=== PATIENT | female | born 1945 | race American Indian/Alaskan Native ===

== ENCOUNTER 2017-05-31 15:02 | Inpatient (IN) | payer MEDICARE, BC ==
[2017-05-31 15:47] VITALS: BMI 48.0
--- NOTE | 2017-05-31 16:15 | C.PDOC ---
History Of Present Illness 71 year old female referred to ED by Dr. Enzo Graves for admission. Pt complaints of new onset of epigastric abdominal pain 4 days ago, which is now resolved. Pt states, "I always have shortness of breath". Denies any associated lightheadedness, swelling, or fever. Pt states she has history of constipation and thought the pain was associated with that. Notes taking Citrate with output. No recurrent epigastric pain since. REFERRED DR Enzo GRAVES FOR ADMISSION. NEW ONSET EPIG PAIN 4 DAYS AGO, NOW RESOLVED. "I ALWAYS HAVE SHORTNESS OF BREATH". NO ASSOC LIGHTHEADEDNESS, SWELLING, FEVER. PS GETS CONSTIPATION THOUGHT PAIN WAS FROM THAT, TOOK MAG CITRATE +OUTPUT. NO RECUR EPIG PAIN SINCE. EXAM NONTOXIC OBESE HEENT NEG LUNGS SPEAKING FULL SENTENCES NO TACHYPNEA +RALES CV IRREG REG TACHY NO EDEMA WARM DRY REMAINDER NEG Time Seen by Provider: 05/31/17 16:10 Chief Complaint (Nursing): Shortness Of Breath History Per: Patient History/Exam Limitations: no limitations Onset/Duration Of Symptoms: Days Current Symptoms Are (Timing): Gone Quality: "Pain" Associated Symptoms: denies: Sweating, Chest Pain, Bloody Cough, Heart Racing, Leg/Calf Pain, Ankle/Leg Swelling, Dizziness, Light-headedness Recent travel outside of the [place]: No Additional History Per: Patient Past Medical History Reviewed: Historical Data, Nursing Documentation, Vital Signs Vital Signs: Last Vital Signs Temp 99.0 F 05/31/17 15:49 Pulse 116 H 05/31/17 15:49 Resp 22 05/31/17 15:49 BP 164/111 H 05/31/17 15:49 Pulse Ox 95 05/31/17 17:26 Family History: States: Unknown Family Hx - Social History Hx Alcohol Use: No Hx Substance Use: No - Immunization History Hx Tetanus Toxoid Vaccination: No Hx Influenza Vaccination: No Hx Pneumococcal Vaccination: No Review Of Systems Except As Marked, All Systems Reviewed And Found Negative. Constitutional: Negative for: Fever, Chills Cardiovascular: Negative for: Chest Pain, Palpitations, Light Headedness Respiratory: Positive for: Shortness of Breath. Negative for: Cough Gastrointestinal: Negative for: Nausea, Vomiting, Abdominal Pain, Diarrhea Genitourinary: Negative for: Dysuria, Frequency, Hematuria Musculoskeletal: Negative for: Back Pain Neurological: Negative for: Headache, Dizziness Physical Exam - Physical Exam Appears: Non-toxic, No Acute Distress, Other (obese) Skin: Normal Color, Warm, Dry Head: Atraumatic, Normacephalic Eye(s): bilateral: Normal Inspection Nose: Normal Oral Mucosa: Moist Neck: Supple Chest: Symmetrical Cardiovascular: Rhythm Irregular (Irregularly regular, tachycardic) Respiratory: No Accessory Muscle Use, Rales (b/l), No Rhonchi, No Wheezing, Other (speaking in full sentences, no tachypnea) Gastrointestinal/Abdominal: Soft, No Tenderness Extremity: Normal ROM, No Pedal Edema, No Deformity, No Swelling Neurological/Psych: Oriented x3, Normal Speech ED Course And Treatment - Laboratory Results Result Diagrams: 05/31/17 16:47 05/31/17 16:47 O2 Sat by Pulse Oximetry: 95 (RA) Pulse Ox Interpretation: Normal - Radiology CXR: Interpreted by Me CXR Interpretation: Yes: Cardiomegaly, Other (CHF) Progress Note: Blood work, CXR, EKG was ordered and reviewed. Pt was given Cardizem. Progress - Re-Evaluation Re-evaluation Note: 05/31/17 16:35 D/W DR Enzo GRAVES. PROBABLE NEW ONSET CHF, AFIB. 05/31/17 17:11 D/W DR Jude MENDEZ C/F PMD WILL ADMIT 05/31/17 17:26 NO CP SINCE INITIAL EVAL. CARDIZEM IN PROGRESS. WILL DOSE ASA, LOVENOX FOR +TROP - Data Reviewed Data Reviewed: Lab, Diagnostic imaging, EKG - Critical Care Citical Care: Excluding Proc Time Critical Care Time: 90 minutes - Continuity of Care Discussed patient case with:: Patient, Covering for PMD Discussed pt. case with biometrics consultant/specialty: Cardiology Disposition Counseled Patient/Family Regarding: Studies Performed, Diagnosis, Need For Followup - Disposition Disposition: HOSPITALIZED Disposition Time: 17:12 Condition: STABLE Forms: [facility] ([place]ish) - POA Present On Arrival: None - Clinical Impression Clinical Impression: New onset atrial fibrillation, Rapid atrial fibrillation, New onset of congestive heart failure, Troponin level elevated - Scribe Statement The provider has reviewed the documentation as recorded by the Scribe Chaka Mendez All medical record entries made by the Scribe were at my direction and personally dictated by me. I have reviewed the chart and agree that the record accurately reflects my personal performance of the history, physical exam, medical decision making, and the department course for this patient. I have also personally directed, reviewed, and agree with the discharge instructions and disposition. Decision To Admit - Pt Status Changed To: Hospital Disposition Of: Inpatient - Admit Certification Admit to Inpatient:: After my assessment, the patient will require hospitalization for at least two midnights. This is because of the severity of symptoms shown, intensity of services needed, and/or the medical risk in this patient being treated as an outpatient. - InPatient: Physician Admission Certification: I certify that this patient requires 2 or more midnights of care for the following reason:: SEE NOTE - . Bed Request Type: Telemetry Admitting Physician: Veronica Mendez Patient Diagnosis: New onset atrial fibrillation, Rapid atrial fibrillation, New onset of congestive heart failure
[2017-05-31 16:50] LABS: BASO # 0.1 K/uL (0.0-0.2); BASO % 0.9 % (0.0-2.0); EOS # 0.2 K/uL (0.0-0.7); EOS % 2.3 % (0.0-4.0); HEMOGLOBIN 12.9 g/dL (11.0-16.0); LYMPH # 1.6 K/uL (1.0-4.3); LYMPH % 20.2 % (20.0-40.0); MEAN CELL VOLUME 89.9 fL (81.0-99.0); MEAN CORPUSCULAR HEMOGLOBIN 29.7 pg (27.0-31.0); MEAN CORPUSCULAR HGB CONC 33.1 g/dL (33.0-37.0); MEAN PLATELET VOLUME 8.2 fL (7.2-11.7); MONO # 0.8 K/uL (0.0-0.8); MONO % 9.8 % (0.0-10.0); NEUT # 5.1 K/uL (1.8-7.0); NEUT % 66.8 % (50.0-75.0); RBC 4.32 Mil/uL (3.80-5.20); RED CELL DISTRIBUTION WIDTH 14.8 % (11.5-14.5); WHITE BLOOD COUNT 7.7 K/uL (4.8-10.8)
[2017-05-31 17:00] LABS: PROTHROMBIN TIME 11.3 SECONDS (9.7-12.2)
[2017-05-31 17:02] LABS: ALB/GLOB RATIO 1.1 (1.0-2.1); ALBUMIN 3.9 g/dL (3.5-5.0); ALT/SGPT 29 U/L (9-52); AST/SGOT 26 U/L (14-36); BLOOD UREA NITROGEN 15 mg/dL (7-17); CALCIUM 8.4 mg/dl (8.6-10.4); GFR AFRICAN-AMERICAN > 60; GFR NON-AFRICAN AMERICAN > 60
[2017-05-31 17:17] LABS: B-TYPE NATRIURETIC PEPTIDE 2150 pg/mL (0-900)
[2017-05-31] MEDS ORDERED: Enoxaparin 40 mg Syringe SC STA (17:25)
--- NOTE | 2017-05-31 17:30 | RAD ---
HISTORY: chest pain COMPARISON: None available. TECHNIQUE: Chest, one view. FINDINGS: Examination limited by habitus. LUNGS: Moderate pulmonary venous congestion. Please note that chest x-ray has limited sensitivity for the detection of pulmonary masses. PLEURA: No significant pleural effusion identified. No definite pneumothorax . CARDIOVASCULAR: Cardiomegaly with CTR approximately 19.3/29.4. Ectatic aorta. OSSEOUS STRUCTURES: No acute osseous abnormality identified. VISUALIZED UPPER ABDOMEN: Unremarkable. OTHER FINDINGS: None. IMPRESSION: Marked cardiomegaly. Moderate pulmonary venous congestion.
[2017-05-31] MEDS ORDERED: Enoxaparin 100 mg Syringe ONE (17:44)
--- NOTE | 2017-05-31 19:10 | CP.PCM.HP ---
Past Patient History - Past Social History Smoking Status: Former Smoker - CARDIAC Hx Cardiac Disorders: Yes Hx Hypotension: Yes - ENDOCRINE/METABOLIC Hx Endocrine Disorders: Yes Hx Diabetes Mellitus Type 2: Yes - PSYCHIATRIC Hx Substance Use: No Meds Allergies/Adverse Reactions: Allergies Allergy/AdvReac Type Severity Reaction Status Date / Time No Known Allergies Allergy Verified 05/31/17 15:46 Physical Exam - Constitutional Appears: Well - Head Exam Head Exam: ATRAUMATIC, NORMAL INSPECTION, NORMOCEPHALIC - Eye Exam Eye Exam: EOMI, Normal appearance, PERRL Pupil Exam: NORMAL ACCOMODATION, PERRL - ENT Exam ENT Exam: Mucous Membranes Moist, Normal Exam - Neck Exam Neck exam: Positive for: Normal Inspection - Respiratory Exam Respiratory Exam: Decreased Breath Sounds - Cardiovascular Exam Cardiovascular Exam: REGULAR RHYTHM, +S1, +S2 - GI/Abdominal Exam GI & Abdominal Exam: Diminished Bowel Sounds, Soft - Rectal Exam Rectal Exam: Deferred Results - Vital Signs Recent Vital Signs: Last Vital Signs Temp 99.0 F 05/31/17 15:49 Pulse 97 H 05/31/17 17:47 Resp 18 05/31/17 17:47 BP 173/104 H 05/31/17 17:47 Pulse Ox 97 05/31/17 17:47 - Labs Result Diagrams: 05/31/17 16:47 05/31/17 16:47 Labs: Laboratory Results - last 24 hr 05/31/17 05/31/17 05/31/17 16:47 16:47 16:47 WBC 7.7 RBC 4.32 Hgb 12.9 Hct 38.9 MCV 89.9 MCH 29.7 MCHC 33.1 RDW 14.8 H Plt Count 254 MPV 8.2 Neut % (Auto) 66.8 Lymph % (Auto) 20.2 [place] % (Auto) 9.8 Eos % (Auto) 2.3 Baso % (Auto) 0.9 Neut # 5.1 Lymph # 1.6 [place] # 0.8 Eos # 0.2 Baso # 0.1 PT 11.3 INR 1.0 APTT 31 Sodium 136 Potassium 3.7 Chloride 101 Carbon Dioxide 27 Anion Gap 11 BUN 15 Creatinine 0.8 Est GFR ( Amer) > 60 Est GFR (Non-Af Amer) > 60 Random Glucose 116 H Calcium 8.4 L Total Bilirubin 1.1 AST 26 ALT 29 Alkaline Phosphatase 144 H Troponin I 0.2020 H* NT-Pro-B Natriuret Pep 2150 H Total Protein 7.4 Albumin 3.9 Globulin 3.5 Albumin/Globulin Ratio 1.1
[2017-05-31] MEDS: Enoxaparin 100 mg Syringe SC SCH (22:51)
[2017-05-31] MEDS ORDERED: Enoxaparin 40 mg Syringe ONE (22:56)
[2017-05-31] MEDS ORDERED: Enoxaparin 60 mg Syringe ONE (22:57)
--- NOTE | 2017-06-01 00:32 | CP.PCM.PN ---
Subjective - Date & Time of Evaluation Date of Evaluation: 05/31/17 Time of Evaluation: 23:40 - Subjective Subjective: 71 M with hx of DM, HTN admitted for epigastric pain and now positive Trops For cath in am NPO after MN except meds Objective - Vital Signs/Intake and Output Vital Signs (last 24 hours): Temp Pulse Resp BP Pulse Ox 99.0 F 73 19 140/90 100 05/31/17 15:49 05/31/17 23:13 05/31/17 23:13 05/31/17 23:13 05/31/17 23:13 - Medications Medications: Current Medications Aspirin (Aspirin) 325 mg PO DAILY [facility] Diltiazem HCl (Cardizem) 30 mg PO QID [facility] Last Admin: 05/31/17 22:50 Dose: 30 mg Enoxaparin Sodium (Lovenox) 100 mg SC Q12 [facility] Last Admin: 05/31/17 22:51 Dose: 100 mg Pantoprazole Sodium (Protonix Ec Tab) 40 mg PO DAILY [facility] - Labs Labs: 05/31/17 16:47 05/31/17 16:47 PT 11.3 SECONDS (9.7-12.2) 05/31/17 16:47 INR 1.0 05/31/17 16:47 APTT 31 SECONDS (21-34) 05/31/17 16:47
[2017-06-01 00:44] LABS: CK-MB 2.26 ng/mL (0.0-3.38); TROPONIN I 0.152 ng/mL (0.00-0.120)
[2017-06-01] MEDS ORDERED: Alum-Mag Hydrox-Simethicone Susp (30 mL) PO ONE (01:38)
[2017-06-01 07:26] LABS: TROPONIN I 0.117 ng/mL (0.00-0.120)
--- NOTE | 2017-06-01 07:29 | CON ---
DATE: 05/30/2017 CARDIOLOGY CONSULTATION REQUESTING PHYSICIAN: Prudencio Lobato MD. HISTORY OF PRESENT ILLNESS: A 71-year-old female was brought in from my office with rapid AFib, shortness of breath, increasing edema for the last 2 to 3 days. She was found to be in CHF as well as rapid AFib and she was sent over here. The patient was last seen about a year ago in the office. At that time, she was in a sinus rhythm. The echocardiogram done at [facility] in last year, 06/2016 had shown LVEF of 65-70%, dilated RA, mild TR with a pulmonary artery systolic pressure of 48 mmHg. She was in usual state of health up until a few days ago. She is diabetic, hypertensive, obese. MEDICATIONS: Her medications at home include baby aspirin 1 a day, Coreg 25 mg twice a day, Synthroid 50 mcg, Lipitor 20, amlodipine 10, Lasix 40 and Tradjenta 5. PERSONAL HISTORY: Does not smoke. Does not drink. ALLERGIES: DENIED. FAMILY HISTORY: Positive for diabetes and hypertension. PAST MEDICAL HISTORY: History of a cardiac cath done, which was no significant coronary artery disease more than 10 years ago; history of arthritis; diabetic; hypertensive. REVIEW OF SYSTEMS: Generalized weakness is noted. No headaches. Positive for blurred vision. No swollen glands. History of sleep apnea. No chest pains, palpitations. Shortness of breath is noted. Edema is noted. GI: Constipation. : Negative for dysuria or hematuria. Musculoskeletal: Multiple osteoarthritis involving the knee joint. No claudication, although she does not ambulate around. Neurologically, no tingling, no numbness. Psych: No evidence of depression. PHYSICAL EXAMINATION: GENERAL: Physical exam shows elderly female in mild respiratory distress. VITAL SIGNS: She is 5 feet 4 inches, weighs about 280 pounds. Blood pressure is 132/70; heart rate of 118, irregular; respiratory rate of 24, temperature of 97. HEENT: Head is normocephalic. Eyes: No pallor. No icterus. NECK: Supple. LUNGS: Decreased air entry at the bases. Scattered rales. HEART: PMI is not localized. S1 and S2 are irregular and tachycardic. No definite gallops or murmurs. ABDOMEN: Soft, nontender. EXTREMITIES: No cyanosis, clubbing. 1+ edema is noted. Distal pulses are intact. NEUROLOGIC: Awake, alert, oriented x3. LABORATORY DATA: Labs are not available. EKG shows atrial fib with rapid ventricular rate. The patient was placed on Cardizem, IV diuretics and the patient currently was converted to sinus rhythm with APCs. ASSESSMENT: A 71-year-old female with a history of obesity, hypertension, diabetes, has presented with a new onset of atrial fibrillation, which was converted back to sinus. PLAN: At this point is to continue diuretics, pulmonary toilet, weight reduction and control of the blood pressure. We will obtain followup echocardiogram. I thank you kindly. We will follow as needed. Venkat Graves MD
[2017-06-01 07:30] LABS: CK-MB 1.53 ng/mL (0.0-3.38)
[2017-06-01] MEDS: Pantoprazole 40 mg EC Tab PO SCH (09:35)
[2017-06-01] MEDS: Enoxaparin 100 mg Syringe SC SCH ×2 (10:53→21:30)
--- NOTE | 2017-06-01 11:29 | CP.PCM.PN ---
Subjective - Date & Time of Evaluation Date of Evaluation: 06/01/17 Time of Evaluation: 11:28 - Subjective Subjective: LESS SOB.NSR. Objective - Vital Signs/Intake and Output Vital Signs (last 24 hours): Temp Pulse Resp BP Pulse Ox 98.8 F 71 20 141/80 95 06/01/17 08:00 06/01/17 09:38 06/01/17 08:00 06/01/17 09:38 06/01/17 08:00 - Medications Medications: Current Medications Aspirin (Aspirin) 325 mg PO DAILY [facility] Last Admin: 06/01/17 09:35 Dose: 325 mg Celecoxib (Celebrex) 200 mg PO DAILY [facility] Last Admin: 06/01/17 10:56 Dose: 200 mg Diltiazem HCl (Cardizem Cd) 240 mg PO DAILY [facility] Enoxaparin Sodium (Lovenox) 100 mg SC Q12 [facility] Last Admin: 06/01/17 10:53 Dose: 100 mg Furosemide (Lasix) 40 mg IVP BID [facility] Insulin Human Regular (Novolin R) 0 unit SC ACHS [facility] PRN Reason: Protocol Pantoprazole Sodium (Protonix Ec Tab) 40 mg PO DAILY [facility] Last Admin: 06/01/17 09:35 Dose: 40 mg - Labs Labs: 05/31/17 16:47 05/31/17 16:47 PT 11.3 SECONDS (9.7-12.2) 05/31/17 16:47 INR 1.0 05/31/17 16:47 APTT 31 SECONDS (21-34) 05/31/17 16:47 - Constitutional Appears: No Acute Distress, Chronically Ill - Eye Exam Eye Exam: Normal appearance - Respiratory Exam Respiratory Exam: Decreased Breath Sounds - Cardiovascular Exam Cardiovascular Exam: REGULAR RHYTHM, Murmur - GI/Abdominal Exam GI & Abdominal Exam: Soft - Extremities Exam Extremities Exam: Pedal Edema - Neurological Exam Neurological Exam: Alert, Oriented x3 Assessment and Plan - Assessment and Plan (Free Text) Assessment: chf,paro a.fib.now nsr. will get echo.repeat ekg.hold off with cath. iv lasix. po cardizem.
[2017-06-01] MEDS: (Novolin R) Insulin Human Regular 100 units/ml vial SC SCH ×3 (12:30→22:01)
--- NOTE | 2017-06-01 14:52 | CARD ---
APPROVED REPORT EKG Measurement Heart [id number] <Conclusion> Atrial fibrillation with rapid ventricular response with premature ventricular or aberrantly conducted complexes Abnormal ECG
[2017-06-01] MEDS: diltiaZEM 240 mg/24 Hours CD Cap PO SCH (17:35)
--- NOTE | 2017-06-01 19:57 | CARD ---
APPROVED REPORT EXAM: Two-dimensional and M-mode echocardiogram with Doppler and color Doppler. Other Information Quality : GoodRhythm : INDICATION Congestive Heart Failure 2D DIMENSIONS IVSd1.5 (0.7-1.1cm)LVDd5.0 (3.9-5.9cm) PWd1.5 (0.7-1.1cm)LVDs3.1 (2.5-4.0cm) FS (%) 38.3 %LVEF (%)68.3 (>50%) M-Mode DIMENSIONS Left Atrium (MM)4.67 (2.5-4.0cm)Aortic Root3.13 (2.2-3.7cm) Aortic Cusp Exc.2.06 (1.5-2.0cm) Aortic Valve AoV Peak Qagehbbo569.3cm/Salome Peak GR.12mmHg Mitral Valve MV E Rdmizdtz963.0cm/sMV A Mpamccdr54.1cm/sE/A ratio1.7 TDI E/Lateral E'0.0E/Medial E'0.0 Tricuspid Valve TR Peak Dhyliqan742im/sTR Peak Gr.57drIqWLRD14icXo LEFT VENTRICLE The left ventricle is normal size. There is moderate concentric left ventricular hypertrophy. The left ventricular function is normal. The left ventricular ejection fraction is within the normal range. There is normal LV segmental wall motion. Tissue Doppler imaging reveals mild left ventricular diastolic dysfunction. RIGHT VENTRICLE The right ventricle is normal size. There is normal right ventricular wall thickness. The right ventricular systolic function is normal. ATRIA The left atrium is mildly dilated. The right atrium is mildly dilated. AORTIC VALVE The aortic valve is moderately sclerotic. MITRAL VALVE The mitral valve is moderately thickened. Mitral regurgitation is mild to moderate. TRICUSPID VALVE There is moderate pulmonary hypertension. PULMONIC VALVE There is no pulmonic valvular regurgitation. GREAT VESSELS The aortic root is normal in size. The IVC was not visualized. PERICARDIAL EFFUSION There is a trace circumferential pericardial effusion. <Conclusion> The left ventricle is normal size. There is moderate concentric left ventricular hypertrophy. The left ventricular function is normal. The left ventricular ejection fraction is within the normal range. There is normal LV segmental wall motion. Tissue Doppler imaging reveals mild left ventricular diastolic dysfunction. The aortic valve is moderately sclerotic. Mitral regurgitation is mild to moderate. There is moderate pulmonary hypertension.
--- NOTE | 2017-06-02 01:20 | CARD ---
APPROVED REPORT EKG Measurement Heart [id number] ND 184P [id number] <Conclusion> Suspect arm lead reversal, interpretation assumes no reversal Normal sinus rhythm with sinus arrhythmia Lateral infarct, age undetermined Inferior infarct, age undetermined T wave abnormality, consider anterior ischemia Prolonged QT Abnormal ECG
[2017-06-02] MEDS: (Novolin R) Insulin Human Regular 100 units/ml vial SC SCH ×4 (08:15→22:25)
[2017-06-02 08:27] LABS: BLOOD UREA NITROGEN 24 mg/dL (7-17); CALCIUM 8.1 mg/dl (8.6-10.4); GFR AFRICAN-AMERICAN > 60; GFR NON-AFRICAN AMERICAN > 60
[2017-06-02] MEDS: diltiaZEM 240 mg/24 Hours CD Cap PO SCH (10:51)
[2017-06-02] MEDS: Pantoprazole 40 mg EC Tab PO SCH (10:51)
[2017-06-02] MEDS: Azithromycin 250 MG in Sodium Chloride 0.9% 250 ML IVPB SCH (10:52)
[2017-06-02] MEDS: Enoxaparin 100 mg Syringe SC SCH ×2 (10:53→22:27)
[2017-06-02] MEDS: Promethazine DM 6.25 mg-15 mg/5 ml Syrup PO SCH ×4 (10:53→22:26)
--- NOTE | 2017-06-02 11:10 | NM ---
COMPARISON: May 31, 2017 TECHNIQUE: 8.9 mCi technetium 99-m Xe-133 Gas. 4.2 mCI technetium 99-m MAA administered intravenously. FINDINGS: VENTILATION COMPONENT: Mildly heterogeneous ventilation centrally consistent with cardiac silhouette and recent chest radiograph. Heterogeneous ventilation left lower lobe also identified PERFUSION COMPONENT: Heterogeneous distribution of radionuclide. No geographic, segmental, lobar abnormalities apparent on the present examination. IMPRESSION: Low probability ventilation perfusion scan for pulmonary embolism.
--- NOTE | 2017-06-02 17:45 | CP.PCM.PN ---
Subjective - Date & Time of Evaluation Date of Evaluation: 06/02/17 Time of Evaluation: 17:44 - Subjective Subjective: cough.sob is better.nsr on tele Objective - Vital Signs/Intake and Output Vital Signs (last 24 hours): Temp Pulse Resp BP Pulse Ox 99.1 F 63 20 147/77 98 06/02/17 17:20 06/02/17 17:20 06/02/17 17:20 06/02/17 17:24 06/02/17 17:20 Intake and Output: 06/02/17 06/02/17 06:59 18:59 Intake Total 320 600 Output Total 800 Balance -480 600 - Medications Medications: Current Medications Aspirin (Aspirin) 325 mg PO DAILY [facility] Last Admin: 06/02/17 10:51 Dose: 325 mg Celecoxib (Celebrex) 200 mg PO DAILY [facility] Last Admin: 06/02/17 10:51 Dose: 200 mg Diltiazem HCl (Cardizem Cd) 240 mg PO DAILY [facility] Last Admin: 06/02/17 10:51 Dose: 240 mg Enoxaparin Sodium (Lovenox) 100 mg SC Q12 [facility] Last Admin: 06/02/17 10:53 Dose: 100 mg Furosemide (Lasix) 40 mg IVP BID [facility] Last Admin: 06/02/17 17:24 Dose: 40 mg Azithromycin 250 mg/ Sodium (Chloride) 250 mls @ 250 mls/hr IVPB Q24H [facility] Last Admin: 06/02/17 10:52 Dose: 250 mls/hr Insulin Human Regular (Novolin R) 0 unit SC ACHS [facility] PRN Reason: Protocol Last Admin: 06/02/17 17:25 Dose: Not Given Levothyroxine Sodium (Synthroid) 50 mcg PO DAILY@0630 [facility] Pantoprazole Sodium (Protonix Ec Tab) 40 mg PO DAILY [facility] Last Admin: 06/02/17 10:51 Dose: 40 mg Promethazine HCl/Dextromethorphan (Phenergan Dm Syrup) 5 ml PO QID [facility] Last Admin: 06/02/17 17:25 Dose: 5 ml - Labs Labs: 05/31/17 16:47 06/02/17 06:22 PT 11.3 SECONDS (9.7-12.2) 05/31/17 16:47 INR 1.0 05/31/17 16:47 APTT 31 SECONDS (21-34) 05/31/17 16:47 - Constitutional Appears: No Acute Distress, Chronically Ill - Head Exam Head Exam: NORMOCEPHALIC - Eye Exam Eye Exam: Normal appearance - Respiratory Exam Respiratory Exam: Decreased Breath Sounds - Cardiovascular Exam Cardiovascular Exam: REGULAR RHYTHM, Murmur - GI/Abdominal Exam GI & Abdominal Exam: Soft - Extremities Exam Extremities Exam: Pedal Edema - Neurological Exam Neurological Exam: Alert, Oriented x3 Assessment and Plan - Assessment and Plan (Free Text) Assessment: pul eval. echo mr,normal lv. ct iv lasix & antibiotics.
--- NOTE | 2017-06-02 18:08 | CP.PCM.CON ---
History of Present Illness - History of Present Illness History of Present Illness: reason for consultation: shortness of breath and cough with blood-tinged sputum 71-year-old female referred by PMD for epigastric pain associated with shortness of breath and cough productive off blood-tinged sputum. Denies fever chills, denies chest pain. Chest x-ray consistent with congestive changes. Patient states that she had sleep study done many years ago but refused to use CPAP at night. Complaining of nocturnal snoring and feeling tired and sleepy during the daytime Review of Systems - Review of Systems All systems: reviewed and no additional remarkable complaints except (shortness of breath and cough) Past Patient History - Past Medical History & Family History Past Medical History?: Yes - Past Social History Smoking Status: Never Smoked - CARDIAC Hx Cardiac Disorders: Yes Hx Hypotension: Yes - PULMONARY Hx Respiratory Disorders: No - NEUROLOGICAL Hx Neurological Disorder: No - HEENT Hx HEENT Problems: No - RENAL Hx Chronic Kidney Disease: No - ENDOCRINE/METABOLIC Hx Endocrine Disorders: Yes Hx Diabetes Mellitus Type 2: Yes Hx Hypothyroidism: Yes - HEMATOLOGICAL/ONCOLOGICAL Hx Blood Disorders: No - INTEGUMENTARY Hx Dermatological Problems: No - MUSCULOSKELETAL/RHEUMATOLOGICAL Hx Musculoskeletal Disorders: No Hx Falls: No - GASTROINTESTINAL Hx Gastrointestinal Disorders: No - GENITOURINARY/GYNECOLOGICAL Hx Genitourinary Disorders: No - PSYCHIATRIC Hx Psychophysiologic Disorder: No Hx Substance Use: No - SURGICAL HISTORY Hx Surgeries: Yes Other/Comment: Claimed had surgery to remove a 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 - ANESTHESIA Hx Anesthesia: Yes Hx Anesthesia Reactions: No Hx Malignant Hyperthermia: No Has any member of the family had a problem w/ anesthesia?: No Meds Allergies/Adverse Reactions: Allergies Allergy/AdvReac Type Severity Reaction Status Date / Time No Known Allergies Allergy Verified 05/31/17 15:46 - Medications Medications: Current Medications Aspirin (Aspirin) 325 mg PO DAILY [facility] Last Admin: 06/02/17 10:51 Dose: 325 mg Celecoxib (Celebrex) 200 mg PO DAILY [facility] Last Admin: 06/02/17 10:51 Dose: 200 mg Diltiazem HCl (Cardizem Cd) 240 mg PO DAILY [facility] Last Admin: 06/02/17 10:51 Dose: 240 mg Enoxaparin Sodium (Lovenox) 100 mg SC Q12 [facility] Last Admin: 06/02/17 10:53 Dose: 100 mg Furosemide (Lasix) 40 mg IVP BID [facility] Last Admin: 06/02/17 17:24 Dose: 40 mg Azithromycin 250 mg/ Sodium (Chloride) 250 mls @ 250 mls/hr IVPB Q24H [facility] Last Admin: 06/02/17 10:52 Dose: 250 mls/hr Insulin Human Regular (Novolin R) 0 unit SC ACHS [facility] PRN Reason: Protocol Last Admin: 06/02/17 17:25 Dose: Not Given Levothyroxine Sodium (Synthroid) 50 mcg PO DAILY@0630 [facility] Pantoprazole Sodium (Protonix Ec Tab) 40 mg PO DAILY [facility] Last Admin: 06/02/17 10:51 Dose: 40 mg Promethazine HCl/Dextromethorphan (Phenergan Dm Syrup) 5 ml PO QID [facility] Last Admin: 06/02/17 17:25 Dose: 5 ml Physical Exam - Head Exam Head Exam: ATRAUMATIC, NORMOCEPHALIC - Eye Exam Eye Exam: Normal appearance - ENT Exam ENT Exam: Mucous Membranes Moist - Neck Exam Neck exam: Positive for: Normal Inspection - Respiratory Exam Respiratory Exam: Decreased Breath Sounds - Cardiovascular Exam Cardiovascular Exam: REGULAR RHYTHM - GI/Abdominal Exam GI & Abdominal Exam: Normal Bowel Sounds, Soft - Extremities Exam Extremities exam: Positive for: pedal edema Results - Vital Signs Recent Vital Signs: Last Vital Signs Temp 99.1 F 06/02/17 17:20 Pulse 63 06/02/17 17:20 Resp 20 06/02/17 17:20 BP 147/77 06/02/17 17:24 Pulse Ox 98 06/02/17 17:20 - Labs Result Diagrams: 05/31/17 16:47 06/02/17 06:22 Labs: Laboratory Results - last 24 hr 06/01/17 06/02/17 06/02/17 20:51 06:22 06:27 Sodium 136 Potassium 3.6 Chloride 103 Carbon Dioxide 28 Anion Gap 9 L BUN 24 H Creatinine 0.9 Est GFR ( Amer) > 60 Est GFR (Non-Af Amer) > 60 POC Glucose (mg/dL) 147 H 96 Random Glucose 100 Calcium 8.1 L 06/02/17 06/02/17 11:25 17:23 Sodium Potassium Chloride Carbon Dioxide Anion Gap BUN Creatinine Est GFR ( Amer) Est GFR (Non-Af Amer) POC Glucose (mg/dL) 151 H 96 Random Glucose Calcium Assessment & Plan (1) Hemoptysis Status: Acute Comment: cough productive off blood-tinged sputum and shortness of breath. Patient on Coumadin for atrial fibrillation. Nebulizer treatment. Inhaled steroid. Continue antibiotics (2) CHF (congestive heart failure) Status: Acute
[2017-06-02] MEDS ORDERED: Aluminum Hydroxide/Magnesium Hydroxide Susp (30 mL) PO ONE (22:46)
[2017-06-03] MEDS: Albuterol 0.083% Inhal Sol (2.5 mg/3 mL) UD INH SCH ×4 (02:08→20:16)
[2017-06-03] MEDS: Levothyroxine 50 MCG TAB PO SCH (05:37)
[2017-06-03] MEDS: (Novolin R) Insulin Human Regular 100 units/ml vial SC SCH ×4 (08:01→21:57)
[2017-06-03 08:02] LABS: BLOOD UREA NITROGEN 21 mg/dL (7-17); GFR AFRICAN-AMERICAN > 60; GFR NON-AFRICAN AMERICAN 55
[2017-06-03] MEDS: Budesonide 0.5 mg/2 ml Inhal Susp UD INH SCH ×2 (08:56→20:16)
[2017-06-03] MEDS: Pantoprazole 40 mg EC Tab PO SCH (10:11)
[2017-06-03] MEDS: diltiaZEM 240 mg/24 Hours CD Cap PO SCH (10:11)
[2017-06-03] MEDS: Enoxaparin 100 mg Syringe SC SCH ×2 (10:12→21:57)
[2017-06-03] MEDS: Azithromycin 250 MG in Sodium Chloride 0.9% 250 ML IVPB SCH (10:12)
[2017-06-03] MEDS: Promethazine DM 6.25 mg-15 mg/5 ml Syrup PO SCH ×4 (10:12→21:58)
--- NOTE | 2017-06-03 12:31 | CP.PCM.PN ---
Subjective - Date & Time of Evaluation Date of Evaluation: 06/03/17 Time of Evaluation: 12:29 - Subjective Subjective: still cough.bp high. Objective - Vital Signs/Intake and Output Vital Signs (last 24 hours): Temp Pulse Resp BP Pulse Ox 99.1 F 71 20 180/92 H 98 06/03/17 04:25 06/03/17 07:53 06/02/17 23:38 06/03/17 10:11 06/02/17 23:38 Intake and Output: 06/03/17 06/03/17 06:59 18:59 Intake Total 420 Output Total 850 Balance -430 - Medications Medications: Current Medications Albuterol Sulfate (Albuterol 0.083% Inhal Leti (2.5 Mg/3 Ml) Ud) 2.5 mg INH RQ6 [facility] Last Admin: 06/03/17 08:56 Dose: 2.5 mg Aspirin (Aspirin) 325 mg PO DAILY [facility] Last Admin: 06/02/17 10:51 Dose: 325 mg Budesonide (Pulmicort Respules) 0.5 mg INH RQ12 [facility] Last Admin: 06/03/17 08:56 Dose: 0.5 mg Celecoxib (Celebrex) 200 mg PO DAILY [facility] Last Admin: 06/03/17 10:11 Dose: 200 mg Diltiazem HCl (Cardizem Cd) 240 mg PO DAILY [facility] Last Admin: 06/03/17 10:11 Dose: 240 mg Enoxaparin Sodium (Lovenox) 100 mg SC Q12 [facility] Last Admin: 06/03/17 10:12 Dose: 100 mg Furosemide (Lasix) 40 mg IVP BID [facility] Last Admin: 06/03/17 10:11 Dose: 40 mg Azithromycin 250 mg/ Sodium (Chloride) 250 mls @ 250 mls/hr IVPB Q24H [facility] Last Admin: 06/03/17 10:12 Dose: 250 mls/hr Insulin Human Regular (Novolin R) 0 unit SC ACHS [facility] PRN Reason: Protocol Last Admin: 06/03/17 11:55 Dose: Not Given Levothyroxine Sodium (Synthroid) 50 mcg PO DAILY@0630 [facility] Last Admin: 06/03/17 05:37 Dose: 50 mcg Losartan Potassium (Cozaar) 50 mg PO DAILY [facility] Pantoprazole Sodium (Protonix Ec Tab) 40 mg PO DAILY [facility] Last Admin: 06/03/17 10:11 Dose: 40 mg Promethazine HCl/Dextromethorphan (Phenergan Dm Syrup) 5 ml PO QID [facility] Last Admin: 06/03/17 10:12 Dose: 5 ml - Labs Labs: 05/31/17 16:47 06/03/17 07:01 PT 11.3 SECONDS (9.7-12.2) 05/31/17 16:47 INR 1.0 05/31/17 16:47 APTT 31 SECONDS (21-34) 05/31/17 16:47 - Constitutional Appears: No Acute Distress, Chronically Ill - Eye Exam Eye Exam: Normal appearance - Neck Exam Neck Exam: Normal Inspection - Respiratory Exam Respiratory Exam: Decreased Breath Sounds - Cardiovascular Exam Cardiovascular Exam: REGULAR RHYTHM, Murmur - GI/Abdominal Exam GI & Abdominal Exam: Soft - Extremities Exam Extremities Exam: absent: Pedal Edema - Neurological Exam Neurological Exam: Alert, Oriented x3 Assessment and Plan - Assessment and Plan (Free Text) Assessment: chf,better.copd,bronchitis,neg vq scan. add cozzar. hopefully d/c in am
--- NOTE | 2017-06-03 12:55 | CP.PCM.PN ---
Subjective - Date & Time of Evaluation Date of Evaluation: 06/03/17 Time of Evaluation: 10:50 - Subjective Subjective: patient seen and examined Still complaining off cough productive off blood-tinged sputum Less shortness of breath Afebrile No chest pain Objective - Vital Signs/Intake and Output Vital Signs (last 24 hours): Temp Pulse Resp BP Pulse Ox 99.1 F 71 20 180/92 H 98 06/03/17 04:25 06/03/17 07:53 06/02/17 23:38 06/03/17 10:11 06/02/17 23:38 Intake and Output: 06/03/17 06/03/17 06:59 18:59 Intake Total 420 Output Total 850 Balance -430 - Medications Medications: Current Medications Albuterol Sulfate (Albuterol 0.083% Inhal Leti (2.5 Mg/3 Ml) Ud) 2.5 mg INH RQ6 [facility] Last Admin: 06/03/17 08:56 Dose: 2.5 mg Aspirin (Aspirin) 325 mg PO DAILY [facility] Last Admin: 06/02/17 10:51 Dose: 325 mg Budesonide (Pulmicort Respules) 0.5 mg INH RQ12 [facility] Last Admin: 06/03/17 08:56 Dose: 0.5 mg Celecoxib (Celebrex) 200 mg PO DAILY [facility] Last Admin: 06/03/17 10:11 Dose: 200 mg Diltiazem HCl (Cardizem Cd) 240 mg PO DAILY [facility] Last Admin: 06/03/17 10:11 Dose: 240 mg Enoxaparin Sodium (Lovenox) 100 mg SC Q12 [facility] Last Admin: 06/03/17 10:12 Dose: 100 mg Furosemide (Lasix) 40 mg IVP BID [facility] Last Admin: 06/03/17 10:11 Dose: 40 mg Azithromycin 250 mg/ Sodium (Chloride) 250 mls @ 250 mls/hr IVPB Q24H [facility] Last Admin: 06/03/17 10:12 Dose: 250 mls/hr Insulin Human Regular (Novolin R) 0 unit SC ACHS [facility] PRN Reason: Protocol Last Admin: 06/03/17 11:55 Dose: Not Given Levothyroxine Sodium (Synthroid) 50 mcg PO DAILY@0630 [facility] Last Admin: 06/03/17 05:37 Dose: 50 mcg Losartan Potassium (Cozaar) 50 mg PO DAILY [facility] Pantoprazole Sodium (Protonix Ec Tab) 40 mg PO DAILY [facility] Last Admin: 06/03/17 10:11 Dose: 40 mg Promethazine HCl/Dextromethorphan (Phenergan Dm Syrup) 5 ml PO QID [facility] Last Admin: 06/03/17 10:12 Dose: 5 ml - Labs Labs: 05/31/17 16:47 06/03/17 07:01 PT 11.3 SECONDS (9.7-12.2) 05/31/17 16:47 INR 1.0 05/31/17 16:47 APTT 31 SECONDS (21-34) 05/31/17 16:47 - Head Exam Head Exam: ATRAUMATIC, NORMOCEPHALIC - Eye Exam Eye Exam: Normal appearance - Neck Exam Neck Exam: Full ROM - Respiratory Exam Respiratory Exam: Clear to Ausculation Bilateral - Cardiovascular Exam Cardiovascular Exam: Irregular Rhythm - GI/Abdominal Exam GI & Abdominal Exam: Soft Assessment and Plan (1) Hemoptysis Assessment & Plan: secondary to bronchitis Continue antibiotics Continual nebulizer Continue budesonide Status: Acute (2) CHF (congestive heart failure) Status: Acute
[2017-06-03 16:59] VITALS: RESP 20
[2017-06-04] MEDS: Albuterol 0.083% Inhal Sol (2.5 mg/3 mL) UD INH SCH ×2 (01:15→07:08)
[2017-06-04] MEDS: Levothyroxine 50 MCG TAB PO SCH (06:07)
[2017-06-04 06:41] VITALS: O2SAT 95
[2017-06-04] MEDS: Budesonide 0.5 mg/2 ml Inhal Susp UD INH SCH (07:08)
[2017-06-04] MEDS: (Novolin R) Insulin Human Regular 100 units/ml vial SC SCH ×2 (07:32→12:00)
[2017-06-04 08:59] VITALS: PULSE 72
[2017-06-04 09:27] VITALS: BP 142/83; TEMP 98.6
[2017-06-04] MEDS: diltiaZEM 240 mg/24 Hours CD Cap PO SCH (10:21)
[2017-06-04] MEDS: Pantoprazole 40 mg EC Tab PO SCH (10:21)
[2017-06-04] MEDS: Promethazine DM 6.25 mg-15 mg/5 ml Syrup PO SCH ×2 (10:22→14:56)
[2017-06-04] MEDS: Azithromycin 250 MG in Sodium Chloride 0.9% 250 ML IVPB SCH (10:49)
--- NOTE | 2017-06-04 11:35 | CP.PCM.PN ---
Subjective - Date & Time of Evaluation Date of Evaluation: 06/04/17 Time of Evaluation: 11:32 - Subjective Subjective: PT SEEN YESTERDAY BY DR. TURNER AND DISCUSSED D/C HOME TODAY WITH ME. I SAW PT THIS MORNING AND SHE HAS NO CUTE COMPLAINTS. STATES SHE STILL HAS PROD COUGH ( WHITE SPUTUM, BLOOD TINGED) BUT IT HAS IMPROVED SINCE ADMISSION. BS CTA B/L; RESP EASY AND UNLABORED; REG RHYTHM, + MURMUR NOTED. OK PER DR. YANG TO D/C PT TODAY. DISCUSSED WITH DR. TURNER THIS MORNING AND STILL IN AGREEMENT FOR D/C HOME TODAY. RX GIVEN FOR LEVAQUIN 250 MG PO OD X7 DAYS, PULMICORT, AND ALBUTEROL W NEB MACHINE. PT TO F/U WITH DR. TURNER WITHIN 5-[address] YANG IN THEIR OFFICES. NO FURTHER ORDERS. Objective - Vital Signs/Intake and Output Vital Signs (last 24 hours): Temp Pulse Resp BP Pulse Ox 98.6 F 72 20 142/83 95 06/04/17 07:50 06/04/17 08:55 06/04/17 07:50 06/04/17 10:22 06/04/17 07:50 Intake and Output: 06/04/17 06/04/17 06:59 18:59 Intake Total 320 Output Total 800 Balance -480 - Medications Medications: Current Medications Albuterol Sulfate (Albuterol 0.083% Inhal Leti (2.5 Mg/3 Ml) Ud) 2.5 mg INH RQ6 [facility] Last Admin: 06/04/17 07:08 Dose: 2.5 mg Aspirin (Aspirin) 325 mg PO DAILY [facility] Last Admin: 06/04/17 10:20 Dose: 325 mg Budesonide (Pulmicort Respules) 0.5 mg INH RQ12 [facility] Last Admin: 06/04/17 07:08 Dose: 0.5 mg Celecoxib (Celebrex) 200 mg PO DAILY [facility] Last Admin: 06/04/17 10:21 Dose: 200 mg Diltiazem HCl (Cardizem Cd) 240 mg PO DAILY [facility] Last Admin: 06/04/17 10:21 Dose: 240 mg Furosemide (Lasix) 40 mg IVP BID [facility] Last Admin: 06/04/17 10:22 Dose: 40 mg Azithromycin 250 mg/ Sodium (Chloride) 250 mls @ 250 mls/hr IVPB Q24H [facility] Last Admin: 06/04/17 10:49 Dose: 250 mls/hr Insulin Human Regular (Novolin R) 0 unit SC ACHS [facility] PRN Reason: Protocol Last Admin: 06/04/17 07:32 Dose: Not Given Levothyroxine Sodium (Synthroid) 50 mcg PO DAILY@0630 [facility] Last Admin: 06/04/17 06:07 Dose: 50 mcg Losartan Potassium (Cozaar) 50 mg PO DAILY [facility] Last Admin: 06/04/17 10:20 Dose: 50 mg Pantoprazole Sodium (Protonix Ec Tab) 40 mg PO DAILY [facility] Last Admin: 06/04/17 10:21 Dose: 40 mg Promethazine HCl/Dextromethorphan (Phenergan Dm Syrup) 5 ml PO QID [facility] Last Admin: 06/04/17 10:22 Dose: 5 ml - Labs Labs: 05/31/17 16:47 06/03/17 07:01 PT 11.3 SECONDS (9.7-12.2) 05/31/17 16:47 INR 1.0 05/31/17 16:47 APTT 31 SECONDS (21-34) 05/31/17 16:47
--- NOTE | 2017-06-04 11:38 | PCM.HF ---
Heart Failure Core Measure - Heart Failure Ejection Fraction: 40 % or Greater ROSALIA Inhibitor Prescribed: No Contraindication/Reason for not providing: ON ARB AT HOME Beta-Merly Prescribed: Carvedilol Contraindication/Reason for not providing: NOT ON MED LIST BUT VERIFIED W PT'S PHARMACY Angiotensin II Receptor Merly Prescribed: Yes AnticoagulationTherapy for Atrial Fibrillation/Atrialflutter: No Contraindication/Reason for not providing: NO AFIB Aldosterone Antagonist Prescribed: No Contraindication/Reason for not providing: EF > 40 Hydralazine Nitrate Prescribed: No Contraindication/Reason for not providing: EF >40 Implantable Cardioverter Defibrillator Therapy: No Contraindication/Reason for not providing: EF > 40 Cardiac Resynchronization Therapy Prescribed: No Contraindication/Reason for not providing: EF> 40 - Follow up Will be discharged to: Home Follow Up Date (must be within 7 days from discharge): 06/08/17 Follow Up Time: 09:00
--- NOTE | 2017-06-10 11:09 | DS ---
HOSPITAL COURSE: This is a 71-year-old female with a history of hypertension, diabetes, who was brought in with a new onset of atrial fibrillation and mild CHF. Echocardiogram had showed moderate MR, normal LV systolic function. She converted in the emergency room with IV Cardizem. She was placed on IV Lasix. She did well. The patient does not have any previous history of any arrhythmias. There was one transient episode of the same. At this point, we will hold off with anticoagulation and follow as an outpatient. The left atrium was dilated. At this point, she will be discharged on controlling the blood pressure medication, diuretics, and she was also seen by pulmonary web development consultant Dr. Presley. Bronchitis was noted. Antibiotic was given, Levaquin for 5 days. She has done well. She has advised to followup with the primary care doctor, Dr. Prudencio Lobato. FINAL DIAGNOSES: Paroxysmal atrial fibrillation, hypertension, diabetes, diastolic heart failure, moderate mitral regurgitation. Venkat Graves MD
== END 2017-06-04 14:47 | disposition home or self-care (01) | DRG 292 ==
LOC: C.ER 15:02 → C.9E 17:12 → C.6T 22:52
PROVIDERS: ADMIT Internal Medicine Cardiovascular Disease; ATTEND Internal Medicine Cardiovascular Disease
DX: I11.0 Hypertensive heart disease with heart failure (principal); Z68.42 Body mass index [BMI] 45.0-49.9, adult; R04.2 Hemoptysis; I48.0 Paroxysmal atrial fibrillation; I50.30 Unspecified diastolic (congestive) heart failure; I34.0 Nonrheumatic mitral (valve) insufficiency; J44.9 Chronic obstructive pulmonary disease, unspecified; E11.9 Type 2 diabetes mellitus without complications; Z87.891 Personal history of nicotine dependence; Z79.4 Long term (current) use of insulin; E66.9 Obesity, unspecified; E03.9 Hypothyroidism, unspecified

== ENCOUNTER 2018-08-15 10:43 | Outpatient (CLI) | payer MEDICARE, BC | END 2018-08-15 10:44 | disposition home or self-care (01) | LOC: C.USIC 10:43 ==